=== PATIENT | female | born 1995 | race Two or more races ===

== ENCOUNTER 2017-05-27 21:58 | Emergency (ER) | payer BC ==
--- NOTE | 2017-05-27 23:25 | EDM.PDOC ---
ED HPI GENERAL MEDICAL PROBLEM - General Chief Complaint: Abdominal Pain Stated Complaint: 8 wks pg abdominal pain Time Seen by Provider: 05/27/17 22:32 Source of Information: Reports: Patient, Family () History Limitations: Reports: Language Barrier (The patient does not speak Venezuelan, however, her acted as an paraprofessional interpreter for her) - History of Present Illness INITIAL COMMENTS - FREE TEXT/NARRATIVE: The patient is , LMP 03/21/2017 (9w 4d by dates). She does not have an Weaver Hand, however, has been seeing Dr. Dinah Barclay. She underwent an obstetric ultrasound due to midline pelvic pain on 04/22/2017, demonstrating a SLIUP. She followed up on 05/14/2017, where a second obstetric ultrasound was done, along with blood work. All were within normal limits. ANDREIA 12/30/2017. The patient is to follow-up with Dr. Barclay on 06/14/2017. The states that earlier tonight the patient felt warm, but did not have a fever when her temperature was checked. She has been complaining of intermittent upper abdominal pain for the past 2 weeks. Tonight she ate a double cheeseburger with fries around 19:00, then developed nausea afterwards. This is the primary reason that she wanted to come to the ED tonight. No vaginal bleeding or pelvic cramps. When asked, the patient denies dysuria, but reports occasional suprapubic pain and occasional urinary frequency. Bilateral Upper Abdomen Pain Score (Numeric/FACES): 8 - Related Data Allergies Allergy/AdvReac Type Severity Reaction Status Date / Time No Known Allergies Allergy Verified 05/27/17 22:05 Home Meds: Home Meds Ondansetron [Zofran ODT] 1 tab PO Q8H PRN #10 tab.dis 05/28/17 [Rx] Past Medical History DEADENER History: Reports: : 1 Para: 0 Social & Family History - Tobacco Use Smoking Status *Q: Never Smoker - Caffeine Use Caffeine Use: Reports: None - Alcohol Use Alcohol Use History: No - Recreational Drug Use Recreational Drug Use: No - Living Situation & Occupation Living situation: Reports: , with Spouse Occupation: Unemployed ED ROS GENERAL - Review of Systems Review Of Systems: ROS reveals no pertinent complaints other than HPI. ED EXAM - Physical Exam Exam: See Below Exam Limited By: No Limitations General Appearance: Alert, WD/WN, No Apparent Distress Eye Exam: Bilateral Eye: Normal Inspection Ears: Normal External Exam, Hearing Grossly Normal Nose: Normal Inspection, No Blood Throat/Mouth: Normal Inspection, Normal Lips, Normal Voice, No Airway Compromise Head: Atraumatic, Normocephalic Neck: Normal Inspection, Full Range of Motion Respiratory/Chest: No Respiratory Distress, Lungs Clear, Normal Breath Sounds, No Accessory Muscle Use Cardiovascular: Normal Peripheral Pulses, Regular Rate, Rhythm, No Gallop, No JVD, No Murmur, No Rub GI/Abdominal Exam: Normal Bowel Sounds, Soft, Non-Tender, No Distention, No Abnormal Bruit, Other (Small gravid uterus, consistent with dates) Rectal Exam: Deferred Back Exam: Normal Inspection, Full Range of Motion, NT Extremities: Normal Inspection, Normal Range of Motion, No Pedal Edema, Normal Capillary Refill Neurological: Alert, Oriented, Normal Cognition, No Motor/Sensory Deficits Psychiatric: Normal Affect Skin Exam: Warm, Dry, Intact, Normal Color, No Rash Course - Vital Signs Last Recorded V/S: Last Vital Signs Temp 36.7 C 05/27/17 22:05 Pulse 83 05/27/17 22:05 Resp 18 05/27/17 22:05 BP 113/70 05/27/17 22:05 Pulse Ox 98 05/27/17 22:05 - Orders/Labs/Meds Orders: Active Orders 24 hr Category Date Time Status UA W/MICROSCOPIC [URIN] Stat Lab 05/27/17 22:50 Ordered Labs: Laboratory Tests 05/27/17 Range/Units 22:50 Urine Color Yellow (Yellow) Urine Appearance Clear (Clear) Urine pH 6.5 (5.0-8.0) Ur Specific Morgan 1.025 (1.005-1.030) Urine Protein Negative (Negative) Urine Glucose (UA) Negative (Negative) Urine Ketones Negative (Negative) Urine Occult Blood Negative (Negative) Urine Nitrite Negative (Negative) Urine Bilirubin Negative (Negative) Urine Urobilinogen 0.2 (0.2-1.0) Ur Leukocyte Esterase Negative (Negative) Urine RBC 0-5 (0-5) /hpf Urine WBC 0-5 (0-5) /hpf Ur Epithelial Cells 0-5 (0-5) /hpf Urine Bacteria Few (FEW) /hpf Urine Mucus Few (FEW) /hpf - Re-Assessments/Exams Free Text/Narrative Re-Assessment/Exam: 05/27/17 23:59 Test results discussed with the patient and her . heart tones were not attempted due to gestational age under 12 weeks. The patient's urinalysis is clean. I suspect that her upper abdominal pain was from eating too large a meal. Going forward, I am recommending that she eat small, but frequent meals. I will discharge her home and e-prescribe some Zofran. The patient will follow- up with Dr. Barclay on 06/14/2017. Departure - Departure Time of Disposition: 23:59 Disposition: Home, Self-Care 01 Condition: Good Clinical Impression: Bilateral upper abdominal discomfort, - Discharge Information Prescriptions: Ondansetron [Zofran ODT] 1 tab PO Q8H PRN #10 tab.dis PRN Reason: Nausea/Vomiting Instructions: Abdominal Pain During , [id number] Referrals: Dinah Barclay MD [Primary Care Provider] - Forms: ED Department Discharge Additional Instructions: You were seen in the emergency room for upper abdominal pain after eating a large meal. Workup in the ER included a urinalysis, which returned normal. You do not have a urinary tract infection. The cause of your abdominal pain is MOST LIKELY due to eating too large a meal at one time. Going forward, we recommend small, frequent meals. A prescription for the anti-nausea medicine Zofran has been sent to the [facility] located in the [employer] grocery store. Dissolve 1 tablet of Zofran on your tongue up to every 8 hours, as needed for nausea/vomiting. We recommend that you notify the office of your PCP, Dr. Dinah Barclay, of your ER visit and Zofran prescription. Follow-up with Dr. Barclay at your previously scheduled appointment on 06/14/2017. If any other problems, please do not hesitate to return to the ER. - My Orders Last 24 Hours: My Active Orders 05/27/17 22:50 UA W/MICROSCOPIC [URIN] Stat - Assessment/Plan Last 24 Hours: My Active Orders 05/27/17 22:50 UA W/MICROSCOPIC [URIN] Stat
== END 2017-05-28 00:14 | disposition home or self-care (01) ==
LOC: JD.ED 21:58
DX: O99.89 Other specified diseases and conditions complicating pregnancy, childbirth and the puerperium (principal); R10.11 Right upper quadrant pain; R10.12 Left upper quadrant pain; Z3A.12 12 weeks gestation of pregnancy
CPT/HCPCS: 81001; 99282; 99284

== ENCOUNTER 2019-06-30 18:46 | Emergency (ER) | payer BC ==
--- NOTE | 2019-06-30 19:36 | EDM.PDOC ---
ED HPI GENERAL MEDICAL PROBLEM - General Chief Complaint: Abdominal Pain Stated Complaint: ABDOMINAL PAIN Time Seen by Provider: 06/30/19 19:02 Source of Information: Reports: Patient History Limitations: Reports: Language Barrier - History of Present Illness INITIAL COMMENTS - FREE TEXT/NARRATIVE: This is a 24-year-old female. She speaks Aramaic and we have an iPad claim auditor. He indicates about 2 hours prior to coming to the ER he had onset of right upper quadrant abdominal pain that seemed to spread across her abdomen and down to the right lower quadrant and also into her back. About 2 hours prior to the pain she had a croissant and some coffee. She comes to the ER because the pain has not eased up. She denies any fever or chills. States she has been having intermittent right upper quadrant pain for the last 12 days but this is the worst. With this pain she has had some nausea but no vomiting. She denies being she has an IUD and she says she is on her period. She still has her appendix as well. She has no history of gallbladder disease. Denies any difficulty in urination. Abdomen Pain Score (Numeric/FACES): 9 - Related Data Allergies Allergy/AdvReac Type Severity Reaction Status Date / Time No Known Allergies Allergy Verified 06/30/19 18:58 Home Meds: Home Meds . 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 Endocrine/Metabolic History: Reports: Other (See Below) Other Endocrine/Metabolic History: Gestational DM - Past Surgical History HEENT Surgical History: Reports: Tonsillectomy Endocrine Surgical History: Reports: None Social & Family History - Family History Family Medical History: Noncontributory - Tobacco Use Smoking Status *Q: Never Smoker - Caffeine Use Caffeine Use: Reports: None - Recreational Drug Use Recreational Drug Use: No - Living Situation & Occupation Living situation: Reports: , with Spouse Occupation: Unemployed ED ROS GENERAL - Review of Systems Review Of Systems: See Below Constitutional: Denies: Fever, Chills HEENT: Reports: No Symptoms Respiratory: Denies: Shortness of Breath, Cough Cardiovascular: Reports: No Symptoms Endocrine: Denies: Fatigue GI/Abdominal: Reports: Abdominal Pain, Nausea. Denies: Constipation, Diarrhea, Vomiting : Reports: No Symptoms Musculoskeletal: Reports: No Symptoms Skin: Reports: No Symptoms Neurological: Reports: No Symptoms Psychiatric: Reports: No Symptoms Hematologic/Lymphatic: Reports: No Symptoms ED EXAM, GI/ABD - Physical Exam Exam: See Below Exam Limited By: No Limitations General Appearance: Alert, WD/WN, No Apparent Distress Eyes: Bilateral: Normal Appearance Ears: Normal External Exam Nose: Other (Wearing a mask and denies any upper respiratory symptoms) Head: Normocephalic Neck: Supple Respiratory/Chest: No Respiratory Distress, Lungs Clear, Normal Breath Sounds Cardiovascular: Regular Rate, Rhythm, No Murmur GI/Abdominal Exam: Soft, Other (Bowel sounds are decreased, she is tender in the right upper quadrant and also slightly in the right lower quadrant on palpation, she does not have a positive Potter's at this time, she is nontender on the left upper and lower quadrant of her abdomen. There is no rigidity there is no rebound or guarding noted.) Back Exam: Full Range of Motion Extremities: Normal Inspection, Normal Range of Motion Neurological: Alert, Oriented Psychiatric: Normal Affect, Normal Mood Skin Exam: Warm, Dry Course - Vital Signs Last Recorded V/S: Last Vital Signs Temp 98.3 F 06/30/19 18:59 Pulse 91 06/30/19 18:59 Resp 16 06/30/19 18:59 BP 130/85 06/30/19 18:59 Pulse Ox 100 06/30/19 18:59 - Orders/Labs/Meds Orders: Active Orders 24 hr Category Date Time Status UA W/MICROSCOPIC [URIN] Stat Lab 06/30/19 19:14 Ordered Labs: Laboratory Tests 06/30/19 06/30/19 06/30/19 Range/Units 19:25 19:25 19:25 WBC 5.61 (3.98-10.04) K/mm3 RBC 4.46 (3.98-5.22) M/mm3 Hgb 13.6 D (11.2-15.7) gm/dl Hct 40.7 (34.1-44.9) % MCV 91.3 (79.4-94.8) fl MCH 30.5 (25.6-32.2) pg MCHC 33.4 (32.2-35.5) g/dl RDW Std Deviation 40.6 (36.4-46.3) fL Plt Count 283 D (182-369) K/mm3 MPV 10.2 (9.4-12.3) fl Neut % (Auto) 34.4 (34.0-71.1) % Lymph % (Auto) 54.9 H (19.3-51.7) % [place] % (Auto) 8.9 (4.7-12.5) % Eos % (Auto) 1.6 (0.7-5.8) Baso % (Auto) 0.0 L (0.1-1.2) % Neut # (Auto) 1.93 (1.56-6.13) K/mm3 Lymph # (Auto) 3.08 (1.18-3.74) K/mm3 [place] # (Auto) 0.50 H (0.24-0.36) K/mm3 Eos # (Auto) 0.09 (0.04-0.36) K/mm3 Baso # (Auto) 0.00 L (0.01-0.08) K/mm3 C-Reactive Protein <0.2 (<1.0) mg/dL HCG, Qual Negative (NEGATIVE) - Re-Assessments/Exams Free Text/Narrative Re-Assessment/Exam: 06/30/19 21:50 Spoke to the patient with the iPad claim auditor regarding the ultrasound results that showed some sludge in the gallbladder but there is no wall thickening or duct dilatation. CBC was completely normal. Most of her pain is in the right upper quadrant and into her back not in her right lower quadrant. I explained to her that she needs to avoid all oily greasy and fried foods and that she needs to follow-up with Dr. Sanchez for referral to a surgeon regarding her gallbladder. The patient seemed to understand with the claim auditor. Departure - Departure Time of Disposition: 21:51 Disposition: Home, Self-Care 01 Condition: Fair Clinical Impression: Gallbladder sludge, Right upper quadrant pain - Discharge Information *PRESCRIPTION DRUG MONITORING PROGRAM REVIEWED*: Not Applicable *COPY OF PRESCRIPTION DRUG MONITORING REPORT IN PATIENT JOSÉ LUIS: Not Applicable Instructions: Gallbladder Eating Plan Referrals: Ladi Sanchez MD [Physician] - Forms: ED Department Discharge Additional Instructions: Follow-up by calling Dr. Sanchez's office to be seen and referred to a surgeon regarding your gallbladder. Avoid all oily greasy and fried foods because that makes the gallbladder hurt, take Tylenol as needed for the pain, since you are breast-feeding it is not advisable to take any pain medications at this time. If there is marked worsening of your symptoms or you develop a fever greater than 101 with this right upper quadrant pain return to the ER for reevaluation Sepsis Event Note - Evaluation Sepsis Screening Result: No Definite Risk - Focused Exam Vital Signs: Vital Signs Temp Pulse Resp BP Pulse Ox 06/30/19 18:59 98.3 F 91 16 130/85 100 Date Exam was Performed: 06/30/19 Time Exam was Performed: 21:50 - My Orders Last 24 Hours: My Active Orders 06/30/19 19:14 UA W/MICROSCOPIC [URIN] Stat - Assessment/Plan Last 24 Hours: My Active Orders 06/30/19 19:14 UA W/MICROSCOPIC [URIN] Stat
--- NOTE | 2019-06-30 20:59 | US ---
Limited abdominal ultrasound: Multiple real-time images of the upper right abdomen were obtained. Liver contains no focal parenchymal abnormality. Gallbladder contains no shadowing gallstones. Minimal sludge is noted within the gallbladder. No gallbladder wall thickening or biliary duct dilatation is seen. Right kidney shows no hydronephrosis or mass. Right kidney has a length of 11.6 cm. Pancreas appears within normal limits. Main portal vein shows normal hepatopedal flow. Impression: 1. Minimal sludge within the gallbladder. Gallbladder is otherwise unremarkable. 2. Other portions of the right upper quadrant abdominal ultrasound appear unremarkable. Diagnostic code #2 This report was dictated in MDT
== END 2019-06-30 21:57 | disposition home or self-care (01) ==
LOC: JD.ED 18:46
DX: K82.8 Other specified diseases of gallbladder (principal)
CPT/HCPCS: 36415; 76705; 76705-26; 84703; 85025; 86140; 99283; 99284-25

== ENCOUNTER 2024-10-25 02:39 | Inpatient (IN) | payer OTHER ==
[2024-10-25] MEDS ORDERED: Ondansetron 4 MG/2 ML SDV IVPUSH PRN (08:57)
[2024-10-25] MEDS ORDERED: Nalbuphine 10 MG/1 ML Vial IVPUSH PRN (08:57)
[2024-10-25] MEDS ORDERED: Oxytocin/0.9 % Sodium Chloride 30 UNIT/500 ML BAG IV SCH (09:00)
[2024-10-25 09:23] LABS: BASOPHILS ABSOLUTE AUTO 0.0 K/mm3 (0.0-0.2); BASOPHILS PERCENT AUTO 0.2 % (0.0-1.0); EOSINOPHILS ABSOLUTE AUTO 0.0 K/mm3 (0.0-0.4); EOSINOPHILS PERCENT AUTO 0.7 % (0.0-6.0); IMMATURE GRAN ABSOLUTE AUTO 0.04 K/mm3 (0.00-0.05); IMMATURE GRAN PERCENT AUTO 0.7 % (0.0-0.4); LYMPHOCYTES ABSOLUTE AUTO 2.1 K/mm3 (1.0-4.8); LYMPHOCYTES PERCENT AUTO 35.4 % (24.0-44.0); MEAN PLATELET VOLUME 11.1 fl (9.4-12.3); MONOCYTES ABSOLUTE AUTO 0.5 K/mm3 (0.0-0.8); MONOCYTES PERCENT AUTO 8.2 % (0.0-8.0); NEUTROPHILS ABSOLUTE AUTO 3.2 K/mm3 (1.8-7.7); NEUTROPHILS PERCENT AUTO 54.8 % (41.0-71.0); NRBC ABSOLUTE 0.00 (0.00-0.02); NRBC PERCENT 0.0 % (0.0-0.2); PLATELET COUNT,PLT 210 K/mm3 (150-400); RED BLOOD CELL COUNT 4.32 M/mm3 (4.10-5.30); WHITE BLOOD CELL COUNT,WBC 5.82 K/mm3 (3.9-11.3)
[2024-10-25] MEDS: Misoprostol 25 MCG (1/4 of 100 MCG) Tab VAG ONE (09:35)
[2024-10-25] MEDS ORDERED: 50% Dextrose in Water 50 ML Syringe IVPUSH PRN (10:31)
[2024-10-25] MEDS: Lactated Ringers 1,000 ML IV SCH (11:26)
[2024-10-25] MEDS: Insulin Lispro 100 Unit/ML 3 ML KwikPen SUBCUT SCH (11:27)
[2024-10-25] MEDS: Oxytocin/0.9 % Sodium Chloride 30 UNIT/500 ML BAG IV SCH (13:31)
[2024-10-25] MEDS ORDERED: Insulin Lispro 100 Unit/ML 3 ML KwikPen SUBCUT SCH (17:00)
[2024-10-25] MEDS: Insulin Lispro 100 Unit/ML 3 ML KwikPen SUBCUT ONE (17:25)
[2024-10-25] MEDS ORDERED: ePHEDrine 50 MG/ML SDV IVPUSH PRN (17:53)
[2024-10-25] MEDS ORDERED: diphenhydrAMINE 50 MG/ML SDV IVPUSH PRN (17:53)
[2024-10-25] MEDS: Bupivacaine/fentaNYL/NS 100 ML Bag EPIDUR PRN (18:12)
[2024-10-25] MEDS: fentaNYL 100 MCG/2 ML SDV EPIDUR PRN (18:12)
[2024-10-26] MEDS: Benzocaine/Menthol 20%-0.5% Spray 78 GM Cannister TOP PRN (04:53)
[2024-10-26] MEDS: Witch Hazel Medicated Pads 40/Jar TOP PRN (04:53)
[2024-10-26] MEDS ORDERED: Insulin Lispro 100 Unit/ML 3 ML KwikPen SUBCUT SCH (07:00)
== END 2024-10-27 11:34 | disposition home or self-care (01) | DRG 807 ==
LOC: JD.OB 02:39 → OBSVTOIN 10-26 02:39 → JD.OB 10-26 02:40
PROVIDERS: ADMIT Obstetrics & Gynecology; ATTEND Obstetrics & Gynecology
PROC: 10D07Z6 Extraction of Products of Conception, Vacuum, Via Natural or Artificial Opening (ICD-10-PCS; principal; 2024-10-26)
PROC: 4A1HXCZ Monitoring of Products of Conception, Cardiac Rate, External Approach (ICD-10-PCS; 2024-10-26)
PROC: 10907ZC Drainage of Amniotic Fluid, Therapeutic from Products of Conception, Via Natural or Artificial Opening (ICD-10-PCS; 2024-10-26)
PROC: 3E033VJ Introduction of Other Hormone into Peripheral Vein, Percutaneous Approach (ICD-10-PCS; 2024-10-26)
PROC: 3E0DXGC Introduction of Other Therapeutic Substance into Mouth and Pharynx, External Approach (ICD-10-PCS; 2024-10-26)
PROC: 3E0R3BZ Introduction of Anesthetic Agent into Spinal Canal, Percutaneous Approach (ICD-10-PCS; 2024-10-26)
PROC: 00HU33Z Insertion of Infusion Device into Spinal Canal, Percutaneous Approach (ICD-10-PCS; 2024-10-26)
DX: O99.892 Other specified diseases and conditions complicating childbirth (principal); Z37.0 Single live birth; R73.03 Prediabetes; Z3A.39 39 weeks gestation of pregnancy; O43.193 Other malformation of placenta, third trimester
CPT/HCPCS: 36415; 51701; 51702; 59025; 59409; 82947; 85025; 86592; 86850; 86900; 86901; A9270-GY; J3010; J3490; J7120; J7999